=== PATIENT | female | born 2005 | race Caucasian/White ===

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

== ENCOUNTER 2024-11-25 22:07 | Emergency (ER) | payer BC, SELFPAY ==
[2024-11-25 22:14] VITALS: BP 114/68; PULSE 87; RESP 16; TEMP 36.8; O2SAT 97
[2024-11-26] VITALS (10 sets, daily range): BP systolic 105–130; BP diastolic 57–72; PULSE 88–108; O2SAT 96–100
--- NOTE | 2024-11-26 00:10 | USR_ITS ---
PROCEDURE INFORMATION: Exam: US First Trimester, Transabdominal and US , Transvaginal Exam date and time: 11/26/2024 12:15 AM Age: 19 years old Clinical indication: Lmp or gestational age (in weeks): 4w 6 d by lmp; Antepartum complications; Bleeding; Additional info: Pelvic cramping, approx 5 weeks gestation LABS AND CLINICAL REPORTS: Last menstrual period start date: 10/22/2024 Gestational age (Established): 4 w 6 d Estimated due date (Established): 07/29/2025 TECHNIQUE: Imaging protocol: Real-time transabdominal obstetrical ultrasound of the maternal pelvis and a first trimester , less than 14 weeks 0 days, with image documentation. Transvaginal imaging was used for better evaluation of the fetus, adnexa, and/or cervix. COMPARISON: US renal BI* [id number] 02/25/2019 12:08 AM FINDINGS: GESTATION: Gestation: Intrauterine gestation is visualized. No pole is visualized. No yolk sac is visualized. Extra-embryonic membranes/Placenta: Unremarkable. No subchorionic bleed. Amniotic/Chorionic fluid: Amniotic and extra-amniotic fluid are normal for gestational age. BIOMETRY: Gestational age (AUA): 5 w 2 d Estimated due date (AUA): 07/27/2025 Mean sac diameter: 0.62 cm. EGA (MSD) is 5 w 2 d MATERNAL: Uterus: Uterus measures 10.13 cm x 5.78 cm x 2.84 cm. Cervix: Unremarkable. Endocervical canal is closed. Right ovary/adnexa: Right ovary measures 3.8 cm x 3.1 cm x 1.5 cm. Right ovarian volume is 9.1 mL. Left ovary/adnexa: Left ovary measures 2.2 cm x 2.8 cm x 0.9 cm. Left ovarian volume is 2.9 mL. Intraperitoneal space: No intraperitoneal free fluid. US/US OB <= 14 weeks fetus [id number] IMPRESSION: Single intrauterine gestational sac with an ultrasonographic age of 5 weeks 2 days.
--- NOTE | 2024-11-26 00:57 | ED_ITS ---
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 She was sent from [facility] in [place] for an ultrasound. She is approximately 4 to 5 weeks . She has not had any bleeding. She had cramping and pain into her back. Apparently she had a positive hCG. No vaginal discharge. No fevers. No vomiting. Related Data Previous Rx's ?Medication ?Instructions ?Recorded albuterol sulfate 90 mcg/actuation 1 - 2 puff inhalati on Q6H PRN 09/05/22 aerosol inhaler (Ventolin HFA) shortness of breath or wheezing #8.5 grams diphenhydramine HCl 25 mg capsule 25 mg PO .qhs PRN al lergy symptoms 09/05/22 (Benadryl) #10 caps Allergies Allergy/AdvReac Type Severity Reaction Status Date / Time Alpha-Gal Allergy Unknown Verified 11/25/24 22:17 ([id number],3-Gala amoxicillin Allergy Unknown Verified 11/25/24 22:17 Review of Systems 2 Narrative: Constitutional symptoms: Negative except as documented in HPI. Skin symptoms: Negative except as documented in HPI. Eye symptoms: Negative except as documented in HPI. ENMT symptoms: Negative except as documented in HPI. Respiratory symptoms: Negative except as documented in HPI. Cardiovascular symptoms: Negative except as documented in HPI. Gastrointestinal symptoms: Negative except as documented in HPI. Genitourinary symptoms: Negative except as documented in HPI. Musculoskeletal symptoms: Negative except as documented in HPI. Neurologic symptoms: Negative except as documented in HPI. Psychiatric symptoms: Negative except as documented in HPI. Endocrine symptoms: Negative except as documented in HPI. PFSH ED 2 PFSH: Medical History Ureteral calculi Urolithiasis Surgical History Hx of tonsillectomy Status post extracorporeal shock wave therapy Family History Mother Hypertension Grandfather Cancer Grandmother Cancer Diabetes Family/Other Kidney failure Family/Other Cancer Social History Alcohol intake: never Substance/Drug Use: never Physical Exam 2 Narrative: EXAM NARRATIVE: General: Alert, no acute distress. Skin: Warm, dry. Head: Normocephalic, atraumatic. Neck: Supple, trachea midline. Eye: Extraocular movements are intact. Ears, nose, mouth and throat: mucosa moist. Cardiovascular: Regular, Normal peripheral perfusion. Respiratory: Lungs are clear to auscultation, respirations are non-labored, breath sounds are equal, Symmetrical chest wall expansion. Gastrointestinal: Soft, Nontender, Non distended Musculoskeletal: Normal ROM, no deformity. Neurological: Alert and oriented, No focal neurological deficit observed. Psychiatric: Cooperative, patient reports she is quite anxious Course 2 Vital Signs: Vital signs: Vital Signs Temperature 98.2 F 11/25/24 22:14 Pulse Rate 103 H 11/26/24 00:47 Respiratory Rate 16 11/25/24 22:14 Blood Pressure 119/72 11/26/24 00:47 Pulse Oximetry 99 11/26/24 00:47 Oxygen Delivery Me thod Room Air 11/26/24 00:47 MDM - OB/Uterine Contractions Medical Decision Making Medical decision making: Differential diagnosis including but not limited to and based on the above HPI, review of systems and physical exam: for patient in early with abdominal pain: Spontaneous , threatened . Urinary tract infection. ectopic . Orders placed to evaluate differential diagnosis based on the above differential, HPI and physical exam Lab Review: Laboratory results were reviewed and interpreted by myself the emergency room physician. No leukocytosis. No anemia. No renal failure. No urinary tract infection. hCG is 3300. Patient is O- for her blood type. However she has had no bleeding so RhoGAM would not be indicated at this time. I discussed that if she does have any vaginal bleeding she needs to seek care at that point. Ultrasound of the abdomen shows single intrauterine gestational sac with estimated age of 5 weeks. I reviewed the patient's medical record. Reexamination: Patient remained stable. No increased work of breathing. No altered mental status. No focal motor deficits. Assessment and plan: /abdominal pain - Discharged home - Discussed plan with patient. Answered any questions. - Evaluation and treatment of this problem were appropriate in the emergency setting. Lab Data 11/26/24 01:04 11/26/24 01:04 Radiology Impressions Ultrasound 11/26/24 00:10 IMPRESSION: Single intrauterine gestational sac with an ultrasonographic age of 5 weeks 2 days. Laboratory Results WBC 8.40 10^3/uL (3.29-11.43) 11/26/24 01:04 RBC 4.54 10^6/uL (3.85-5.65) 11/26/24 01:04 Hgb 13.40 g/dL (11.27-16.99) 11/26/24 01:04 Hct 39.8 % (36-47) 11/26/24 01:04 MCV 87.7 fl (85-98) 11/26/24 01:04 MCH 29.5 pg (27-33) 11/26/24 01:04 MCHC 33.7 g/dL (30-55) 11/26/24 01:04 RDW 12.6 % (12.1-15.1) 11/26/24 01:04 Plt Count 197 10^3/cmm (157-399) 11/26/24 01:04 MPV 11.6 fL (7.4-10.4) H 11/26/24 01:04 Neut % (Auto) 68.8 % 11/26/24 01:04 Lymph % (Auto) 22.3 % 11/26/24 01:04 [place] % (Auto) 6.7 % 11/26/24 01:04 Eos % (Auto) 1.8 % 11/26/24 01:04 Baso % (Auto) 0.2 % 11/26/24 01:04 Neut # (Auto) 5.78 10^3/uL (1.8-7.7) 11/26/24 01:04 Lymph # (Auto) 1.9 10^3/uL (0.8-4.8) 11/26/24 01:04 [place] # (Auto) 0.6 10^3/uL (0.2-0.9) 11/26/24 01:04 Eos # (Auto) 0.2 10^3/uL (0.0-0.8) 11/26/24 01:04 Baso # (Auto) 0.0 10^3/uL (0.0-0.1) 11/26/24 01:04 Nucleated RBC % (auto) 0 % 11/26/24 01:04 Nucleated RBCs # 0.0 /100WBC 11/26/24 01:04 Sodium 135 mmol/L (136-145) L 11/26/24 01:04 Potassium 3.5 mmol/L (3.5-5.1) 11/26/24 01:04 Chloride 101 mmol/L (98-107) 11/26/24 01:04 Carbon Dioxide 19 mmol/L (22-29) L 11/26/24 01:04 Anion Gap 18.5 (5-19) 11/26/24 01:04 BUN 10 mg/dL (6-20) 11/26/24 01:04 Creatinine 0.7 mg/dL (0.5-0.9) 11/26/24 01:04 GFR Calculation 105.6 mL/min (90-130) 11/26/24 01:04 Glucose 101 mg/dL (65-115) 11/26/24 01:04 Calculated Osmolality 279 mOsm/kg (285-295) L 11/26/24 01:04 Calcium 9.2 mg/dL (8.5-10.5) 11/26/24 01:04 Total Bilirubin 0.8 mg/dL (0.15-1.2) 11/26/24 01:04 AST 17 U/L (0-32) 11/26/24 01:04 ALT 8 U/L (0-33) 11/26/24 01:04 Alkaline Phosphatase 57 U/L (35-105) 11/26/24 01:04 Total Protein 7.3 g/dL (6.6-8.7) 11/26/24 01:04 Albumin 4.4 g/dL (3.5-5.2) 11/26/24 01:04 Globulin 2.9 g/dL (1.3-4.6) 11/26/24 01:04 Ser , Semi-Qnt 3335.00 mIU/mL 11/26/24 01:04 Urine Color Yellow (Yellow) 11/26/24 01:10 Urine Appearance Clear (CLEAR) 11/26/24 01:10 Urine pH 6.0 (5-7) 11/26/24 01:10 Ur Specific [place] 1.007 (1.005-1.030) 11/26/24 01:10 Urine Protein Negative (Negative) 11/26/24 01:10 Urine Glucose (UA) Negative (Normal) 11/26/24 01:10 Urine Ketones 1+ (Negative) H 11/26/24 01:10 Urine Blood Negative (Negative) 11/26/24 01:10 Urine Nitrate Negative (Negative) 11/26/24 01:10 Urine Bilirubin Negative (Negative) 11/26/24 01:10 Urine Urobilinogen 0.2 mg/dL (Negative) 11/26/24 01:10 Ur Leukocyte Esterase Negative (Negative) 11/26/24 01:10 Urine RBC 3-5 /hpf (0-2) 11/26/24 01:10 Urine WBC 0-5 /hpf (0-5) 11/26/24 01:10 Ur Squamous Epith Cells 6-10 /hpf (0-5) 11/26/24 01:10 Amorphous Sediment Not Reportable 11/26/24 01:10 Urine Bacteria Trace /hpf (NONE) 11/26/24 01:10 Hyaline Casts 0.81 /lpf 11/26/24 01:10 Blood Type O Negative 11/26/24 01:04 Rho(D) Type Rh negative 11/26/24 01:04 All radiology interpretation(s) finalized by discharge Discharge Plan Discharge Patient Disposition: Home Clinical Impression: Abdominal cramping affecting , Anxiety Condition: Stable Prescriptions: No Action albuterol sulfate [Ventolin HFA] 90 mcg/actuation HFA aerosol inhaler 1 - 2 puff inhalation Q6H PRN (Reason: shortness of breath or wheezing) Qty: 8.5 0RF diphenhydramine HCl [Benadryl] 25 mg capsule 25 mg PO .qhs PRN (Reason: allergy symptoms) Qty: 10 0RF Discharge Orders: Discharge ED (Routine); Ordered 11/26/24 Ordered By: Sarah Nava Referrals: Alecia Oneal DO [Primary Care Provider, Family Practice] Discharge Diet: Usual diet Discharge Activity: Increase activity as tolerated Patient Instructions: Opioid Safety, Pain Management Print Language: Slovak Coding Level of Care Code ED Foundation Relations Director for Abhinav Esquivel
[2024-11-26 01:14] LABS: Basophils % 0.2 %; Eosinophils # 0.2 10^3/uL (0.0-0.8); Eosinophils % 1.8 %; Hematocrit 39.8 % (36-47); Lymphocytes # 1.9 10^3/uL (0.8-4.8); Lymphocytes % 22.3 %; Mean Corpuscular HGB Conc 33.7 g/dL (30-55); Mean Corpuscular Hemoglobin 29.5 pg (27-33); Mean Corpuscular Volume 87.7 fl (85-98); Mean Platelet Volume 11.6 fL (7.4-10.4); Monocytes # 0.6 10^3/uL (0.2-0.9); Monocytes % 6.7 %; Neutrophils # 5.78 10^3/uL (1.8-7.7); Neutrophils % 68.8 %; Nucleated Red Blood Cells % 0 %; Platelet Count 197 10^3/cmm (157-399); Red Blood Count 4.54 10^6/uL (3.85-5.65); Red Cell Distribution Width 12.6 % (12.1-15.1)
[2024-11-26] MEDS: LORazepam 1 mg Tablet PO (01:17)
[2024-11-26 01:26] LABS: Bilirubin Urine Negative (Negative); Blood Urine Negative (Negative); Glucose Urine UA Negative (Normal); Ketones Urine 1+ (Negative); Leukocyte Esterase Urine Negative (Negative); Nitrate Urine Negative (Negative); Protein Urine Negative (Negative); Specific Gravity, Urine 1.007 (1.005-1.030); Urine Appearance Clear (CLEAR); Urine Color Yellow (Yellow); Urobilinogen Urine 0.2 mg/dL (Negative)
[2024-11-26 01:31] LABS: Bacteria Urine Trace /hpf; Hyaline Casts Urine 0.81 /lpf; WBC Urine 0-5 /hpf (0-5)
[2024-11-26 01:46] LABS: Alanine Aminotransferase 8 U/L (0-33); Albumin Level 4.4 g/dL (3.5-5.2); Alkaline Phosphatase 57 U/L (35-105); Anion Gap 18.5 (5-19); Aspartate Amino Transferase 17 U/L (0-32); Blood Urea Nitrogen 10 mg/dL (6-20); Calcium 9.2 mg/dL (8.5-10.5); Carbon Dioxide 19 mmol/L (22-29); Chloride 101 mmol/L (98-107); Creatinine Clr Calc Pharmacy 106.1328; Globulin 2.9 g/dL (1.3-4.6); Glomerular Filtration Rate 105.6 mL/min (90-130); Glucose 101 mg/dL (65-115); Osmolality Calculated 279 mOsm/kg (285-295); Potassium 3.5 mmol/L (3.5-5.1); Sodium 135 mmol/L (136-145); Total Bilirubin 0.8 mg/dL (0.15-1.2); Total Protein 7.3 g/dL (6.6-8.7)
[2024-11-26 01:57] LABS: UA Slide Review UA Slide Review Perf
== END 2024-11-26 04:40 | disposition home or self-care (01) ==
PROVIDERS: Emergency Provider Emergency Medicine; PCP Family Medicine
DX: O26.891 Other specified pregnancy related conditions, first trimester (principal); Z3A.01 Less than 8 weeks gestation of pregnancy; F41.9 Anxiety disorder, unspecified
CPT/HCPCS: 76801; 80053; 81001; 84702; 85025; 86900; 99284; J9999

== ENCOUNTER 2025-05-12 20:33 | Outpatient (CLI) | payer BC, MEDICAID, SELFPAY ==
[2025-05-12 20:42] VITALS: BMI 27.9
[2025-05-12 20:46] VITALS: BP 128/75; PULSE 78; RESP 16; TEMP 36.1
[2025-05-12 21:09] VITALS: BP 117/64; PULSE 80
[2025-05-12 21:18] VITALS: BP 117/64; PULSE 80; RESP 16; TEMP 36.4; O2SAT 96
== END 2025-05-12 21:16 | disposition home or self-care (01) ==
LOC: OPOB 20:37 → OBGYN 20:37
PROVIDERS: PCP Family Medicine; Visit Provider Family Medicine
DX: O36.8190 Decreased fetal movements, unspecified trimester, not applicable or unspecified (principal); Z3A.00 Weeks of gestation of pregnancy not specified
CPT/HCPCS: 59025; 99211

== ENCOUNTER 2025-05-30 04:01 | Outpatient (CLI) | payer BC, MEDICAID, SELFPAY ==
[2025-05-30 04:14] VITALS: BP 110/59; PULSE 85
[2025-05-30 04:24] VITALS: BP 112/61; PULSE 83; RESP 16
[2025-05-30 04:26] VITALS: BMI 34.0
[2025-05-30 04:29] VITALS: BP 112/61; PULSE 83
[2025-05-30 04:30] LABS: Glucose Urine UA Negative (Normal); Nitrate Urine Negative (Negative); Specific Gravity, Urine 1.019 (1.005-1.030)
[2025-05-30 04:35] LABS: Universal Test for UA Present (0)
[2025-05-30 04:44] VITALS: BP 114/63; PULSE 78
[2025-05-30 05:19] VITALS: BP 112/61; PULSE 81; RESP 16
== END 2025-05-30 05:00 | disposition home or self-care (01) ==
LOC: OPOB 04:02 → OBGYN 04:05
PROVIDERS: PCP Family Medicine; Visit Provider Family Medicine
DX: O26.899 Other specified pregnancy related conditions, unspecified trimester (principal); Z3A.00 Weeks of gestation of pregnancy not specified; N89.8 Other specified noninflammatory disorders of vagina
CPT/HCPCS: 59025; 81001; 99211